=== PATIENT | female | born 1985 ===

== ENCOUNTER 2021-09-13 17:23 | Emergency (ER) | payer OTHER, SELFPAY ==
--- NOTE | ~2021-09-13 | XR_ITS ---
EXAMINATION: XR MANDIBLE CLINICAL INFORMATION: Pain. COMPARISON: None TECHNIQUE: 4 views of the mandible were obtained. FINDINGS: There are no fractures or dislocations. No bone, joint or soft tissue abnormality is demonstrated. XR/XR mandible min 4V IMPRESSION: Unremarkable mandible examination.
[2021-09-13 17:23] VITALS: BP 145/85; PULSE 104; O2SAT 98
[2021-09-13 19:03] VITALS: BP 161/90; PULSE 98; RESP 20; TEMP 36.4; O2SAT 100; BMI 33.6
[2021-09-13 19:42] VITALS: BP 137/89; PULSE 90; RESP 12; TEMP 36.7; O2SAT 100
[2021-09-13 19:52] LABS: Appearance Urine CLEAR; Color Urine YELLOW; Glucose Urine UA NEG (NEG); Leukocyte Esterase Urine NEG (NEG); Nitrite Urine NEG (NEG); PH 6.5 (5.0-8.0); Urine Blood NEG (NEG); Urine Ketones 15 MG/DL (NEG); Urine Protein TRACE MG/DL (NEG-TRACE)
[2021-09-13 19:56] LABS: UPreg QC Valid YES; Urine Pregnancy NEGATIVE (NEGATIVE)
--- NOTE | 2021-09-13 20:33 | ED_ITS ---
HPI - General Adult General Chief complaint: Dental/Oral Stated complaint: Medical Clearance? Time Seen by Provider: 09/13/21 20:33 Source: patient Mode of arrival: ambulatory Limitations: no limitations History of Present Illness HPI narrative: Patient is a 35 year old female presenting to the emergency department today with jaw pain and a possible UTI. Patient states that over the last few days she has felt an increase of jaw pain and she is concerned it may be broken. Patient states she has a history of TMJ however, this seems to hurt more. Patient states she is also concerned she has a urinary tract infection and would like to be checked for that. Patient denies any dizziness, vaginal discharge, vaginal bleeding, lightheadedness, abdominal pain, nausea, vomiting, fever, chills, blurry vision, double vision, loss of vision, chest pain, difficulty breathing, shortness of breath, back pain, night sweats, pain with urination, increased urinary frequency, increased urinary urgency, blood in her urine or stool, syncope or a near syncopal episode, recent trauma or falls, bowel incontinence, bladder incontinence, bowel retention, bladder retention, or any other complaints at this time. Onset (ago): day(s) Severity: mild Relieving factors: none Exacerbating factors: none Associated symptoms: denies other symptoms Related Data Allergies Allergy/AdvReac Type Severity Reaction Status Date / Time Penicillins Allergy Hives Verified 09/13/21 19:11 Review of Systems Verdana 4l Constitutional: Verdana 4d Constitutional: Verdana 4d Verdana 4d Reports no additional constitutional complaints, Denies chills, Denies fever(s) and Denies night sweats Verdana 4l Eyes: Verdana 4d Verdana 4d Eyes: Verdana 4d Reports no additional eye complaints, Denies blurry vision, Denies change in vision, Denies diplopia, Denies eye discharge, Denies loss of vision and Denies eye pain Verdana 4l ENT: Verdana 4d Denies dizziness Verdana 4l Cardiovascular: Verdana 4d Cardiovascular: Verdana 4d Verdana 4d Reports no additional cardiovascular complaints, Denies chest pain, Denies lightheadedness, Denies Loss of Consciousness and Denies dyspnea Verdana 4l Respiratory: Verdana 4d Verdana 4d Respiratory: Verdana 4d Reports no additional respiratory complaints and Denies dyspnea Verdana 4l Gastrointestinal: Verdana 4d Gastrointestinal: Verdana 4d Verdana 4d Reports no additional gastrointestinal complaints, Denies abdominal pain, Denies melena, Denies hematochezia, Denies change in bowel habits and Denies change in stool character Verdana 4l Genitourinary: Verdana 4d Verdana 4d Genitourinary: Verdana 4d Denies hematuria, Denies urinary frequency, Denies dysuria, Denies urinary incontinence, Denies urinary hesitancy and Denies urinary urgency Verdana 4l Musculoskeletal: Verdana 4d Musculoskeletal: Verdana 4d Verdana 4d Reports no additional musculoskeletal complaints, Denies numbness, Denies tingling and Reports other ( jaw pain) Verdana 4l Neurologic: Verdana 4d Denies dizziness, Denies loss of vision, Denies numbness and Denies tingling Verdana 4l Psychiatric: Verdana 4d Verdana 4d Psychiatric: Verdana 4d Reports no additional psychiatric complaints Verdana 4l Endocrine: Verdana 4d Verdana 4d Endocrine: Verdana 4d Reports no additional endocrine complaints Verdana 4l Hematologic/Lymphatic: Verdana 4d Hematologic/Lymphatic: Verdana 4d Verdana 4d Reports no additional hematologic/lymphatic complaints Verdana 4l Allergic/Immunologic: Verdana 4d Allergic/Immunologic: Verdana 4d Verdana 4d Reports no additional allergic/immunologic complaints PMFSH Past Medical History Attestation statement: The following information was validated with the patient. Source: old records reviewed Medical History Endometriosis PTSD (post-traumatic stress disorder) Social History Social History Advance Directives: No Advance Directives Information Provided: No Patient : No Physical Exam Verdana 4l Vital Signs: Verdana 4d Verdana 4d Vital Signs: Verdana 4d Verdana 4Bd Last Vital Signs Verdana 4d Assistant Activities Director New 4d Assistant Activities Director New 4d Temp 98.1 F 09/13/21 19:42 Assistant Activities Director New 4d Pulse 90 09/13/21 19:42 Assistant Activities Director New 4d Resp 12 09/13/21 19:42 BP 137/89 09/13/21 19:42 Pulse Ox 100 09/13/21 19:42 BMI result Body Mass Index 33.6 Const: General: cooperative, no acute distress, alert and awake Nutritional Appearance: well nourished Orientation/consciousness: patient oriented x3 Limitations: no limitations HENMT: Head: Yes normal to inspection and Yes atraumatic Ears: hearing grossly normal bilaterally and external ears normal General nose exam: Normal external nose present, no nasal discharge noted and no epistaxis Face and sinus: Yes normal facial exam, No abrasion and No laceration Mouth: Normal oral and palatal mucosa present, no drooling and no muffled voice Eyes: General: appearance normal, both eyes and all related structures Periorbital: periorbital findings normal Eyelids: Yes eyelids normal Conjunctivae: conjunctivae normal Pupils: Equal, round and reactive pupils present EOM: EOMs intact bilaterally Neck: Neck: Yes normal visual inspection, Yes full ROM and Yes no lymphadenopathy Chest: Chest palpation & inspection: normal inspection of the chest Resp: Effort & Inspection: normal respiratory effort and able to speak in complete sentences Auscultation: clear to auscultation bilaterally Cardio: Rate: regular rate Rhythm: regular rhythm GI: Inspection: Yes normal to inspection Neuro: General: patient oriented x3 and moves all extremities Cranial nerves: Yes Equal, round and reactive pupils present Cognition (Neuro): normal cognition Motor exam (neuro): 5/5 motor strength present throughout Sensory Exam: Normal double simultaneous stimulation for sensation Coordination: [id number] test normal Extrem: General: Yes normal to inspection, Yes full ROM and Yes capillary refill normal Psych: Appearance: grossly normal Mental Status: mental status grossly normal Affect: normal affect Attitude: cooperative Thought process: Normal thought process present Thought content: Normal thought content present Insight: Good insight present (Psych) Course Course Course Narrative: patient's mandible x-ray was interpreted by the radiologist to have no acute process Medical Decision Making MDM Narrative Medical decision making narrative: Patient is a 35 year old female presenting to the emergency department today with jaw pain and a possible urinary tract infection. Patient's physical exam was unremarkable. Patient's urine showed no acute process. Patient's jaw x-ray showed no acute process. I explained my physical exam findings as well as all test results to the patient. I answered all questions asked by the patient. I stressed the importance of the patient taking her medication as prescribed. I stressed the importance of the patient following up with her primary care provider. I stressed the importance of the patient returning to the emergency department immediately if her symptoms were to worsen or if she were to develop any dizziness, shortness of breath, difficulty breathing, chest pain, blurry vision, loss of vision, nausea, vomiting, abdominal pain, fever, chills, back pain, or any other complaints. Patient verbalized agreement and understanding with this treatment plan and discharge. Differential Diagnosis Differential Diagnosis: TMJ, UTI, medical examination Medical Records Medical records reviewed: Yes I reviewed the patient's medical records. Lab Data Lab results reviewed: Yes I reviewed the patient's lab results. Labs: Lab Results 09/13/21 09/13/21 Range/Units 19:47 19:47 Urine Color YELLOW Urine Appearance CLEAR Urine pH 6.5 (5.0-8.0) Ur Specific [place] 1.020 (1.005-1.025) Urine Protein TRACE (NEG-TRACE) MG/DL Urine Glucose (UA) NEG (NEG) MG/DL Urine Ketones 15 (NEG) MG/DL Urine Blood NEG (NEG) Urine Nitrite NEG (NEG) Ur Leukocyte Esterase NEG (NEG) Urine Test NEGATIVE (NEGATIVE) Discharge Plan Discharge Clinical Impression: TMJ (temporomandibular joint disorder) Patient Disposition: Home, Self-Care Instructions: Arthroscopic TMJ (DC) Interventions: ED Discharge Assessment Last Done: 09/13/21 21:28 Discharge Date/Time: 09/13/21 21:43 Print Language: Japanese
[2021-09-13] MEDS: Ibuprofen 800 MG TABLET PO (21:18)
--- NOTE | 2021-09-13 21:39 | PC.NURSE ---
CARE TEAM CONSULTED. TRYING TO GET PATIENT A LIFT.
--- NOTE | 2021-09-13 21:43 | PC.NURSE ---
LIFT PROVIDED THROUGH CARE TEAM.
== END 2021-09-13 21:43 | disposition home or self-care (01) ==
PROVIDERS: Emergency Provider Emergency Medicine Emergency Medical Services; PCP Nurse Practitioner Family
DX: M26.603 Bilateral temporomandibular joint disorder, unspecified (principal); Z79.899 Other long term (current) drug therapy
CPT/HCPCS: 70110; 81003; 81025; 99283

== ENCOUNTER 2022-03-18 03:50 | Emergency (ER) | payer MEDICARE, MEDICAID, SELFPAY ==
[2022-03-18 04:13] VITALS: BP 134/86; BP 158/107; PULSE 104; PULSE 94; RESP 28; TEMP 37.3; O2SAT 96; O2SAT 98; BMI 36.8
== END 2022-03-18 05:12 | disposition left against medical advice (07) ==
LOC: HO.ED 05:10
PROVIDERS: Emergency Provider Emergency Medicine
DX: H92.09 Otalgia, unspecified ear (principal)
CPT/HCPCS: 99281